=== PATIENT | female | born 1965 | race Hispanic/Latino ===

== ENCOUNTER 2022-06-24 14:05 | Outpatient (CLI) | payer OTHER | END 2022-06-24 14:06 | disposition home or self-care (01) | LOC: BICMAMMO 14:05 | PROVIDERS: ATTEND Family Medicine | DX: Z12.31 Encounter for screening mammogram for malignant neoplasm of breast (principal) | CPT/HCPCS: 77063; 77067 ==

== ENCOUNTER 2024-06-10 03:34 | Emergency (ER) | payer BC, OTHER, SELFPAY ==
[2024-06-10 04:45] LABS: Bilirubin Negative (Negative); Blood, Urine 2+ (Negative); CAUTI Indications for Culture Pelvic or flank pain; Clarity Turbid (Clear); Glucose, Urine (Dipstick) Normal (Negative); Ketone, Urine Negative (Negative); Leukocyte Negative Leu/uL (Negative); Nitrite Negative (Negative); Protein, Urine (Dipstick) 10 mg/dL (Neg-Trace); Specific Gravity, Urine 1.028 (1.002-1.036); Urobilinogen Normal mg/dL (Less than 2); WBC/HPF 0-3 HPF (0-3); pH, Urine 5.5 (5.0-9.0)
[2024-06-10 04:47] LABS: Bacteria/HPF 1+ HPF (None Seen); Urine Culture Reflex No No
[2024-06-10] MEDS ORDERED: Ondansetron ODT 4 MG TAB ONE (04:52)
[2024-06-10 05:13] LABS: Influenza A by NAA Not Detected (NotDetected); Influenza B by NAA Not Detected (NotDetected); SARS-CoV-2 NAA Rapid Test DETECTED (NotDetected)
== END 2024-06-10 05:26 | disposition home or self-care (01) ==
LOC: ERS 03:34
DX: U07.1 COVID-19 (principal)
CPT/HCPCS: 81001; 99284; Q0162

== ENCOUNTER 2024-09-15 20:16 | Emergency (ER) | payer BC ==
[~2024-09-15 20:16] MED LIST: Iopamidol-370 76% 500 ML MDV (1 ML CHARGE) ONE
[2024-09-15] MEDS ORDERED: Morphine 4 MG/ML VIAL ONE (20:24)
[2024-09-15] MEDS ORDERED: Ondansetron PF 4 MG/2 ML Vial ONE ×2 (20:24→22:21)
[2024-09-15 20:57] LABS: #Basophils Less than 0.03 10x3/uL (0.0-0.2); %Basophils 0.1 % (0.0-1.0); %Eosinophils 0.8 % (0.0-10.0); %Lymphocytes 8.6 % (21.0-51.0); %Monocytes 3.3 % (0.0-10.0); %Neutrophils 86.8 % (42.0-75.0); Hematocrit 42.7 % (36.0-47.0); Mean Corpuscular HGB CONC 32.8 g/dL (32.0-36.0); Mean Corpuscular Hemoglobin 31.5 pg (27.0-31.0); Mean Platelet Volume 10.2 fL (7.4-10.4); Platelet Count 263 10x3/uL (130-400); RBC Distribution Width 12.7 % (11.5-14.5); Red Blood Cell (RBC) Count 4.45 mill/uL (4.20-5.40)
[2024-09-15 21:15] LABS: ALT (SGPT) 21 U/L (8-55); AST (SGOT) 31 U/L (5-34); Alkaline Phosphatase 99 U/L (40-110); Anion Gap 15 mmol/L (10-20); BUN (Urea Nitrogen) 15 mg/dL (9.8-20.1); Bilirubin, Total 0.5 mg/dL (0.2-1.2); Calc. Creatinine Clearance 0 mL/min (70-130); Calcium 9.7 mg/dL (7.8-10.44); Carbon Dioxide 24 mmol/L (22-29); Chloride 105 mmol/L (98-107); Estimated GFR 80; Globulin 4.2 g/dL (2.4-3.5); Glucose 128 mg/dL (70-105); Lipase 20 U/L (8-78); Potassium 4.4 mmol/L (3.5-5.1); Protein, Total 8.2 g/dL (6.0-8.3); Sodium 140 mmol/L (136-145)
[2024-09-15 21:56] LABS: Bilirubin Negative (Negative); Blood, Urine Trace (Negative); Glucose, Urine (Dipstick) Negative (Negative); Ketone, Urine Negative (Negative); Leukocyte Negative (Negative); Nitrite Negative (Negative); Protein, Urine (Dipstick) Negative (Neg-Trace); Urobilinogen 0.2 mg/dL (Less than 2)
[2024-09-15 21:59] LABS: Bacteria/HPF Rare-Few HPF (None Seen); CAUTI Indications for Culture Immunosuppressed; Clarity Clear (Clear); RBC/HPF 0-3 HPF (0-3); Triple Phosphate Crystal 1+ HPF (None Seen)
[2024-09-15 22:00] LABS: Other Microscopic Description Less than 2 mL rec'd; Urine Culture Reflex No No
[2024-09-15 22:01] LABS: Urine Culture Reflex Yes Yes
== END 2024-09-16 00:16 | disposition home or self-care (01) ==
LOC: ERS 20:16
DX: N39.0 Urinary tract infection, site not specified (principal); K52.9 Noninfective gastroenteritis and colitis, unspecified; Z55.6 Problems related to health literacy
CPT/HCPCS: 74177; 80053; 81001; 83605; 83690; 85025; 87086; 96361; 96374; 96375; 96376; J2272; J2405; Q9967